=== PATIENT | female | born 1975 | race Caucasian/White ===

== ENCOUNTER → 2018-08-22 | Outpatient (CLI) | payer OTHER | LOC: CIMAGING 07:55 | PROVIDERS: ATTEND Family Medicine | DX: Z12.31 Encounter for screening mammogram for malignant neoplasm of breast (principal) ==

== ENCOUNTER → 2018-12-10 | Outpatient (CLI) | payer OTHER | LOC: BRMIMAGING 09:06 | PROVIDERS: ATTEND Internal Medicine | DX: J98.09 Other diseases of bronchus, not elsewhere classified (principal); M25.50 Pain in unspecified joint; R68.3 Clubbing of fingers; F17.200 Nicotine dependence, unspecified, uncomplicated | CPT/HCPCS: 71046-PO; 73130-PO; 73562-PO; 73610-PO ==